=== PATIENT | male | born 1970 | race Caucasian/White ===

== ENCOUNTER 2018-02-24 12:17 | Inpatient (IN) | payer OTHER ==
[2018-02-24 13:02] LABS: BASOPHILS # (AUTO) 0.1 10^3/uL (0.0-0.1); BASOPHILS % (AUTO) 0.3 %; EOSINOPHILS # (AUTO) 0.1 10^3/uL (0.0-0.7); EOSINOPHILS % (AUTO) 0.3 %; HGB - HEMOGLOBIN 15.2 g/dL (14.0-18.0); LYMPHOCYTES # (AUTO) 2.4 10^3/uL (1.5-3.5); LYMPHOCYTES % (AUTO) 10.4 %; MEAN CORPUSCULAR HEMOGLOBIN 32.2 pg (27.0-31.0); MEAN CORPUSCULAR HGB CONC 33.9 g/dL (32.0-36.0); MEAN PLATELET VOLUME 8.6 fL (7.4-11.4); MONOCYTES # (AUTO) 2.6 10^3/uL (0.0-1.0); NEUTROPHILS # (AUTO) 18.2 10^3/uL (1.5-6.6); PLT - PLATELET COUNT 270 10^3/uL (130-450); RED BLOOD COUNT 4.71 10^6/uL (4.70-6.10); RED CELL DISTRIBUTION WIDTH 12.7 % (12.0-15.0); WHITE BLOOD COUNT 23.4 x10^3/uL (4.8-10.8)
[2018-02-24 13:16] LABS: ALBUMIN 4.5 g/dL (3.2-5.5); ALBUMIN/GLOBULIN RATIO 1.1 (1.0-2.2); BILIRUBIN,TOTAL 2.5 mg/dL (0.2-1.0); CALCIUM 9.4 mg/dL (8.5-10.3); CREATININE 1.1 mg/dL (0.6-1.2); TOTAL PROTEIN 8.5 g/dL (6.7-8.2)
[2018-02-24 13:18] LABS: GLUCOSE, URINE (UA) NEGATIVE (NEGATIVE); KETONES,URINE (UA) TRACE mg/dL (NEGATIVE); LEUKOCYTE ESTERASE, URINE NEGATIVE (NEGATIVE); NITRITE,URINE NEGATIVE (NEGATIVE); OCCULT BLOOD,URINE NEGATIVE (NEGATIVE); PROTEIN,URINE 30 mg/dL (NEGATIVE); UROBILINOGEN,URINE 2 E.U./dL (NORMAL)
[2018-02-24] MEDS ORDERED: MORPHINE 10 MG/ML VIAL IVP STA (13:19)
[2018-02-24] MEDS ORDERED: KETOROLAC 60 MG/2 ML VIAL IVP STA (13:19)
[2018-02-24] MEDS ORDERED: ONDANSETRON 4 MG/2 ML VIAL IVP STA (13:19)
[2018-02-24 13:36] LABS: BILIRUBIN,URINE NEGATIVE (NEGATIVE); CLARITY,URINE CLEAR (CLEAR); ICTOTEST,URINE NEGATIVE
[2018-02-24 13:37] LABS: BACTERIA,URINE None Seen /HPF (None Seen); CASTS, URINE 3-5 Hyaline Casts /LPF; MUCUS,URINE Marked Strands; RBC,URINE 0-5 /HPF (0-5); SQUAMOUS EPITHELIAL CELL,UR RARE Squamous (<= Few)
[2018-02-24 14:26] LABS: PLATELET ESTIMATE, MANUAL NORMAL (130-450,000) (NORMAL); PLATELET MORPHOLOGY NORMAL APPEARANCE (NORMAL); RBC MORPHOLOGY (MULTIPLE) NORMAL APPEARANCE (NORMAL)
[2018-02-24] MEDS ORDERED: IOPAMIDOL-300 100 ML VIAL ONE (14:43)
[2018-02-24] MEDS ORDERED: IOPAMIDOL-300 100 ML VIAL IVP ONE (14:44)
--- NOTE | 2018-02-24 15:10 | ED Physician Documentation ---
History of Present Illness - Stated complaint Stated Complaint: ABD PX, CHILLS, FEVER - Chief complaint Chief Complaint: Abd Pain - History obtained from History obtained from: Patient, Family - Additonal information Additional information: 47-year-old male presents to the emergency department with increasing lower abdominal pain over the past several days. The patient's pain has been focal and continuous and escalating in intensity. Now the patient's pain radiates into his left flank. The patient has had hematuria and nausea associated with this. Also fever and chills. No relieving factors. Symptoms are described as moderate. No other associated symptoms.While having his blood drawn the patient had a significant episode of pain and became woozy and lightheaded and had a vasovagal response. Now the patient has no complaints of dizziness, chest pain or palpitations Review of Systems Constitutional: reports: Fever, Chills Eyes: denies: Discharge Ears: denies: Ear pain Nose: denies: Congestion Throat: denies: Sore throat Cardiac: denies: Chest pain / pressure Respiratory: denies: Dyspnea GI: reports: Abdominal Pain, Nausea : reports: Hematuria. denies: Dysuria Skin: denies: Rash Musculoskeletal: denies: Neck pain Neurologic: denies: Generalized weakness Immunocompromised: denies: Chemotherapy PD PAST MEDICAL HISTORY - Past Medical History Past Medical History: Yes : Kidney stones - Past Surgical History Past Surgical History: No - Present Medications Home Medications: Ambulatory Orders Medication Instructions Recorded Confirmed Omeprazole 10 mg PO QDAC 02/24/18 02/24/18 Rosuvastatin Calcium [Crestor] 10 mg PO QPM 02/24/18 02/24/18 - Allergies Allergies/Adverse Reactions: Allergies Allergy/AdvReac Type Severity Reaction Status Date / Time No Known Drug Allergies Allergy Verified 02/24/18 12:25 - Social History Does the pt smoke?: No Smoking Status: Never smoker PD ED PE NORMAL - General General: Alert and oriented X 3, No acute distress, Well developed/nourished - HEENT HEENT: Atraumatic, PERRL, EOMI, Ears normal - Cardiac Cardiac: RRR, Strong equal pulses - Respiratory Respiratory: No respiratory distress, Clear bilaterally - Abdomen Abdomen: Normal bowel sounds, Soft, Non distended. No: Non tender (The patient has tenderness in his lower abdomen, no rebound or peritoneal signs) - Derm Derm: Normal color, No rash - Extremities Extremities: No deformity, Normal ROM s pain - Neuro Neuro: Alert and oriented X 3, No motor deficit - Psych Psych: Normal mood Results - Vitals Vitals: Vital Signs - 24 hr 02/24/18 02/24/18 02/24/18 12:23 14:36 16:18 Temperature 36.2 C L Heart Rate 97 94 84 Respiratory 15 20 20 Rate Blood Pressure 124/71 112/79 113/72 O2 Saturation 98 98 96 Oxygen O2 Source Room air - EKG (time done) 13: 27 Rate: Rate (enter#) Rhythm: NSR Intervals: Normal GA, QRS normal Ischemia: Non specific changes Other comments: Other comments - Labs Labs: Laboratory Tests 02/24/18 02/24/18 02/24/18 12:40 12:53 12:53 WBC 23.4 H RBC 4.71 Hgb 15.2 Hct 44.8 MCV 95.0 H MCH 32.2 H MCHC 33.9 RDW 12.7 Plt Count 270 MPV 8.6 Neut # (Auto) 18.2 H Lymph # (Auto) 2.4 Hunt # (Auto) 2.6 H Eos # (Auto) 0.1 Baso # (Auto) 0.1 Absolute Nucleated RBC 0.00 Nucleated RBC % 0.0 Manual Slide Review Indicated WBC Morphology NORMAL APPEARANCE Platelet Estimate NORMAL (130-450,000) Platelet Morphology NORMAL APPEARANCE RBC Morph Micro Appear NORMAL APPEARANCE Sodium 135 Potassium 4.0 Chloride 100 L Carbon Dioxide 24 Anion Gap 11.0 BUN 9 Creatinine 1.1 Estimated GFR (MDRD) 71 L Glucose 110 H Calcium 9.4 Total Bilirubin 2.5 H AST 22 ALT 20 Alkaline Phosphatase 58 Total Protein 8.5 H Albumin 4.5 Globulin 4.0 Albumin/Globulin Ratio 1.1 Lipase 31 Urine Color ORANGE Urine Clarity CLEAR Urine pH 6.0 Ur Specific [place] 1.025 Urine Protein 30 H Urine Glucose (UA) NEGATIVE Urine Ketones TRACE Urine Occult Blood NEGATIVE Urine Nitrite NEGATIVE Urine Bilirubin NEGATIVE Urine Urobilinogen 2 H Ur Leukocyte Esterase NEGATIVE Urine RBC 0-5 Urine WBC 0-3 Ur Squamous Epith Cells RARE Squamous Urine Bacteria None Seen Urine Casts 3-5 Hyaline Casts Urine Mucus Marked Strands Ur Microscopic Review INDICATED Urine Culture Comments NOT INDICATED - Rads (name of study) CT abdomen pelvis Radiology: Final report received, See rad report (Impression: 1. Moderate acute complicated diverticulitis involving the proximal sigmoid colon. There is trace extraluminal gas in this region suggesting a contained perforation with adjacent peritonitis. No drainable fluid collection at this time 2. Mild splenomegaly of uncertain etiology and clinical significance) PD MEDICAL DECISION MAKING - ED course ED course: The case was discussed with the on-call general surgeon Dr. Garcia who agrees to consult on the patient. The findings and plan were discussed with the patient who understands and agrees to the plan. The case was discussed with the hospitalist Dr. Noyola Who accepts the patient onto her service - Sepsis Event Vital Signs: Vital Signs - 24 hr 02/24/18 02/24/18 02/24/18 12:23 14:36 16:18 Temperature 36.2 C L Heart Rate 97 94 84 Respiratory 15 20 20 Rate Blood Pressure 124/71 112/79 113/72 O2 Saturation 98 98 96 Oxygen O2 Source Room air Departure - Departure Disposition: ED Place in Observation Clinical Impression: Perforation of cecum due to diverticulitis Condition: Good
[2018-02-24] MEDS ORDERED: PIPERACILLIN/TAZOBACTAM 4.5 GM in SODIUM CHLORIDE 0.9% MINIBAG 100 ML IV STA (15:53)
--- NOTE | 2018-02-24 15:54 | CT Report ---
Procedure Date: 02/24/2018 Accession Number: [id number] / [id number] Procedure: CT - Abdomen/Pelvis W/ CPT Code: FULL RESULT: EXAM: CT ABDOMEN AND PELVIS EXAM DATE: 02/24/2018 02:53 PM. CLINICAL HISTORY: Lower abdominal pain. COMPARISONS: None. TECHNIQUE: Routine helical CT imaging was performed through the abdomen and pelvis. IV contrast: 100 mL Isovue 300. Enteric contrast: No. Reconstructions: Coronal and sagittal. In accordance with CT protocol optimization, one or more of the following dose reduction techniques were utilized for this exam: automated exposure control, adjustment of mA and/or KV based on patient size, or use of iterative reconstructive technique. FINDINGS: Lung Bases: Unremarkable. Liver: Normal. No masses. Gallbladder/Bile Ducts: Unremarkable. Spleen: Mildly enlarged measuring 14.2 cm in oblique AP dimension (18). No suspicious focal lesion. Pancreas: Normal. Adrenal Glands: Normal. Kidneys: Normal. No masses or hydronephrosis. Peritoneal Cavity/Bowel: Few scattered colonic diverticula. There is moderate inflammation surrounding a proximal sigmoid diverticula in the left lower quadrant (3/63). There is a trace amount of extraluminal gas in this region in keeping with contained perforation. No rim-enhancing drainable fluid collection (/62-67). There is moderate adjacent fat stranding as well as thickening of the adjacent left lower quadrant peritoneum (3/65). Bowel is otherwise unremarkable. Appendix is well-visualized and normal. No abnormally enlarged lymph nodes. Pelvic Organs: Normal. The bladder and visualized pelvic organs are within normal limits. Vasculature: No abdominal aortic aneurysm. There is minimal distal abdominal aortic and common iliac artery calcific atherosclerosis. Bones: No acute osseous abnormality or suspicious focal osseous lesion. Moderate disk height loss and surrounding degenerative endplate changes at L4-L5. Other: Tiny fat-containing periumbilical hernia. No bowel containing abdominal wall hernia. IMPRESSION: 1. Moderate acute complicated diverticulitis involving the proximal sigmoid colon. There is trace extraluminal gas in this region suggesting a contained perforation with adjacent peritonitis. No drainable fluid collection at this time. 2. Mild splenomegaly of uncertain etiology and clinical significance. RADIA The above findings were discussed with Nirav Nicholas by Dr. Benigno Pak at 15:52 hrs on 02/24/18.
[2018-02-24] MEDS ORDERED: HYDROmorphone 1 MG/ML CARPUJECT IVP STA (16:17)
[2018-02-24] MEDS ORDERED: TEMAZEPAM 15 MG CAPSULE PO PRN (18:09)
[2018-02-24] MEDS ORDERED: ONDANSETRON ODT 4 MG TABLET TL PRN (18:09)
[2018-02-24] MEDS ORDERED: D5NS W/20 MEQ KCL 1,000 ML IV STA (18:19)
[2018-02-24] MEDS: metroNIDAZOLE 500 MG/100 ML 500 MG/100 ML BAG IV SCH (19:40)
[2018-02-24] MEDS: PANTOPRAZOLE 40 MG VIAL IVP SCH (19:41)
[2018-02-24] MEDS: SODIUM CHLORIDE FLUSH 0.9% 10 ML SYRINGE IVP PRN (19:41)
[2018-02-24] MEDS: HYDROmorphone 0.5 MG/0.5 ML SYRINGE IVP PRN ×2 (19:50→23:29)
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
[2018-02-24] MEDS ORDERED: PIPERACILLIN/TAZOBACTAM 3.375 GM in SODIUM CHLORIDE 0.9% MINIBAG 100 ML IV SCH (22:26)
[2018-02-25] MEDS: HYDROmorphone 0.5 MG/0.5 ML SYRINGE IVP PRN ×7 (01:39→18:58)
[2018-02-25] MEDS: SODIUM CHLORIDE FLUSH 0.9% 10 ML SYRINGE IVP SCH ×3 (01:43→17:01)
[2018-02-25] MEDS: metroNIDAZOLE 500 MG/100 ML 500 MG/100 ML BAG IV SCH ×3 (03:35→19:49)
[2018-02-25 05:38] LABS: BASOPHILS % (AUTO) 0.3 %; EOSINOPHILS # (AUTO) 0.1 10^3/uL (0.0-0.7); EOSINOPHILS % (AUTO) 0.9 %; LYMPHOCYTES # (AUTO) 1.9 10^3/uL (1.5-3.5); MEAN CORPUSCULAR HGB CONC 34.8 g/dL (32.0-36.0); MEAN CORPUSCULAR VOLUME 94.9 fL (80.0-94.0); MEAN PLATELET VOLUME 8.4 fL (7.4-11.4); MONOCYTES # (AUTO) 1.3 10^3/uL (0.0-1.0); MONOCYTES % (AUTO) 9.5 %; NEUTROPHILS # (AUTO) 10.3 10^3/uL (1.5-6.6); NEUTROPHILS % (AUTO) 75.3 %; PLT - PLATELET COUNT 217 10^3/uL (130-450); RED BLOOD COUNT 3.94 10^6/uL (4.70-6.10); RED CELL DISTRIBUTION WIDTH 12.7 % (12.0-15.0); WHITE BLOOD COUNT 13.7 x10^3/uL (4.8-10.8)
[2018-02-25 05:53] LABS: ALBUMIN 3.4 g/dL (3.2-5.5); ALBUMIN/GLOBULIN RATIO 1.1 (1.0-2.2); CALCIUM 8.5 mg/dL (8.5-10.3); CREATININE 0.8 mg/dL (0.6-1.2); TOTAL PROTEIN 6.4 g/dL (6.7-8.2)
[2018-02-25] MEDS: SODIUM CHLORIDE FLUSH 0.9% 10 ML SYRINGE IVP PRN ×2 (05:55→06:05)
[2018-02-25] MEDS: PANTOPRAZOLE 40 MG VIAL IVP SCH ×2 (06:05→17:01)
[2018-02-25] MEDS: PIPERACILLIN/TAZOBACTAM 3.375 GM in SODIUM CHLORIDE 0.9% MINIBAG 100 ML IV SCH ×3 (06:05→18:37)
--- NOTE | 2018-02-25 10:09 | CONSULTATION NOTE ---
Referring Provider Consult Date: 02/25/18 Chief Complaint - Chief Complaint Chief Complaint: complicated diverticulitis History of Present Illness - History of Present Illness HPI Comment/Other: This is a 39-year-old gentleman who presented to the emergency department yesterday for left lower quadrant abdominal pain and fevers. He states that on Tuesday he began feeling left-sided abdominal and flank pain and thought he was passing a kidney stone as he has had past multiple stones in the past and this felt similar. The pain failed to improve and he eventually went to the emergency department where a CT scan was performed and confirmed findings of acute diverticulitis with localized perforation and without evidence of abscess formation. Additionally his white blood cell count was noted to be 23,000. His physical exam was negative for peritonitis and was admitted to the medical service. Upon my evaluation of the patient today his pain is markedly improved.His white blood cell count has decreased to 13,000 And he has been afebrile. He denies any prior episodes of diverticulitis. He has never had a colonoscopy. History - Past Medical History Cardiovascular: reports: High cholesterol Respiratory: reports: None Neuro: reports: Migraines Endocrine/Autoimmune: reports: None GI: reports: None : reports: Kidney stones HEENT: reports: None Psych: reports: None Musculoskeletal: reports: None Derm: reports: None MRSA Hx?: No - Past Surgical History HEENT: reports: Other Meds/Allgy - Home Medications Home Medications: Ambulatory Orders Medication Instructions Recorded Confirmed Omeprazole 10 mg PO QDAC 02/24/18 02/24/18 Rosuvastatin Calcium [Crestor] 10 mg PO QPM 02/24/18 02/24/18 - Allergies Allergies/Adverse Reactions: Allergies Allergy/AdvReac Type Severity Reaction Status Date / Time No Known Drug Allergies Allergy Verified 02/24/18 12:25 Review of Systems - Constitutional Constitutional: reports: Fatigue - Cardiovascular Cariovascular: denies: Irregular heart rate - Gastrointestinal Gastrointestinal: reports: Abdominal pain, Diarrhea - Neurological Neurological: denies: General weakness - Psychiatric Psychiatric: denies: Depression Exam - Vital Signs Vital Signs: Vital Signs x48h Temp Pulse Resp BP Pulse Ox 02/25/18 08:16 37.5 C 88 17 110/54 L 94 - Physical Exam General Appearance: positive: No acute distress Respiratory: positive: No respiratory distress Cardiovascular: positive: Regular rate & rhythm Abdomen: positive: No distention, Other (mild tenderness to palpation in the left lower quadrant without gaurding or rebound) Extremities: positive: No pedal edema Neurologic/Psychiatric: positive: Oriented x3 Conclusion/Plan - Diagnosis Diagnosis: Acute diverticulitis with localized perforation - Plan Plan: The patient is already responding favorable to IV antibiotics. I recommend continuing IV antibiotics until normalization of WBC and resolution of abdominal pain. OK to start clear liquids today. Upon discharge he will need a colonoscopy scheduled in the elective setting. The patient was counselled that most patients respond to medical management, however, if he fails to improve, surgical intervention may be necessary. I also indicated that diverticulitis can recur in the future and multiple recurrences may also warrant surgical intervention. - Lab Results Fish Bones: 02/25/18 05:17 02/25/18 05:17
[2018-02-25] MEDS ORDERED: SODIUM CHLORIDE 0.9% 1,000 ML IV ONE (11:32)
[2018-02-25] MEDS: POLYETHYLENE GLYCOL 3350 17 GM PACKET PO SCH (11:53)
--- NOTE | 2018-02-25 13:28 | PROVIDER PROGRESS NOTE ---
Assessment/Plan - Problem List (1) Perforated bowel Assessment/Plan: Pt stable clinically. Was seen by Generl surgeon, her consult is appreciated. Continue iv antibiotics. Continue iv fluids. Advance diet slowly, to clear liquids today. Follow CBC and CMP daily. (2) Acute diverticulitis Assessment/Plan: As in #1. - Current Meds Current Meds: Current Medications Generic Name Dose Route Start Last Admin Trade Name Freq PRN Reason Stop Dose Admin Hydromorphone HCl 0.5 mg 02/24/18 18:09 02/25/18 09:52 Dilaudid Inj Syringe IVP 0.5 mg Q2H PRN Administration Pain 8 to 10 Metronidazole 500 mg in 100 mls @ 100 mls/hr 02/24/18 19:00 02/25/18 12:23 Flagyl 500 Mg/100 Ml IV Infused Q8H JOHNNY Infusion Piperacillin Sod/Tazobactam 100 mls @ 200 mls/hr 02/25/18 06:00 02/25/18 12: 25 Sod 3.375 gm/ Sodium Chloride IV Infused Q6H JOHNNY Infusion Pantoprazole Sodium 40 mg 02/24/18 19:00 02/25/18 06:05 Protonix IVP 40 mg BIDAC JOHNNY Administration Polyethylene Glycol 17 gm 02/25/18 09:00 02/25/18 11:53 Miralax PO 17 gm DAILY JOHNNY Administration Sodium Chloride 10 ml 02/24/18 18:09 02/25/18 06:05 Normal Saline Flush 0.9% IVP 10 ml PRN PRN Administration NEEDED PER PROVIDER ORDERS Sodium Chloride 10 ml 02/25/18 01:00 02/25/18 11:33 Normal Saline Flush 0.9% IVP Not Given 0100,0900,1700 JOHNNY - Lab Result Fish Bone Diagrams: 02/25/18 05:17 02/25/18 05:17 - Additional Planning My Orders: My Active Orders 02/24/18 19:00 metroNIDAZOLE 500 MG/100 ML [Flagyl 500 mg/100 ml] 500 mg in 100 ml IV Q8H 02/25/18 06:00 Piperacillin/Tazobactam [Zosyn] 3.375 gm Sodium Chloride 0.9% Minibag [Normal Saline 0.9% Minibag] 100 ml IV Q6H 02/25/18 13:00 Electrolyte-A Solution [Plasma-Lyte A pH 7.4] 1,000 ml IV 150 mls/hr 02/25/18 Lunch DIET [Clear Liquid Diet] [DIET] Subjective - Subjective Patient Reports: Feeling Better Nursing Reports: Other (Tolerated liquids po) Objective Vital Signs: Vital Signs - 24 hr 02/24/18 02/25/18 02/25/18 18:39 00:00 08:16 Temperature 36.6 C 37.2 C 37.5 C Heart Rate [ 75 Apical] Heart Rate [ 90 88 Brachial] Respiratory 16 18 17 Rate Blood Pressure 123/72 112/63 110/54 L [Left Brachial artery] O2 Saturation 95 94 94 Oxygen O2 Source Room air I&O (Last 24 Hrs): Intake and Output Totals x24h 02/23/18 02/24/18 02/25/18 23:59 23:59 23:59 Intake Total 339.229 9202.668 Output Total 200 Balance 522.418 4097.668 General: Alert, Oriented x3, Cooperative HEENT: Mucous membr. moist/pink Neck: Supple Neuro: Non Focal Cardiovascular: Regular rate, No murmurs Respiratory: No respiratory distress, Breath sounds nml Abdomen: Other (Decreased bowel sounds, less tender in lower mid abd and LLQ than yesterday) Extremities: No edema - Results Results: Laboratory Results WBC 13.7 x10^3/uL (4.8-10.8) H 02/25/18 05:17 RBC 3.94 10^6/uL (4.70-6.10) L 02/25/18 05:17 Hgb 13.0 g/dL (14.0-18.0) L 02/25/18 05:17 Hct 37.4 % (42.0-52.0) L 02/25/18 05:17 MCV 94.9 fL (80.0-94.0) H 02/25/18 05:17 MCH 33.0 pg (27.0-31.0) H 02/25/18 05:17 MCHC 34.8 g/dL (32.0-36.0) 02/25/18 05:17 RDW 12.7 % (12.0-15.0) 02/25/18 05:17 Plt Count 217 10^3/uL (130-450) 02/25/18 05:17 MPV 8.4 fL (7.4-11.4) 02/25/18 05:17 Neut # (Auto) 10.3 10^3/uL (1.5-6.6) H 02/25/18 05:17 Lymph # (Auto) 1.9 10^3/uL (1.5-3.5) 02/25/18 05:17 [place] # (Auto) 1.3 10^3/uL (0.0-1.0) H 02/25/18 05:17 Eos # (Auto) 0.1 10^3/uL (0.0-0.7) 02/25/18 05:17 Baso # (Auto) 0.0 10^3/uL (0.0-0.1) 02/25/18 05:17 Absolute Nucleated RBC 0.00 x10^3/uL 02/25/18 05:17 Nucleated RBC % 0.0 /100WBC 02/25/18 05:17 Manual Slide Review Indicated 02/24/18 12:53 WBC Morphology NORMAL APPEARANCE (NORMAL) 02/24/18 12:53 Platelet Estimate NORMAL (130-450,000) (NORMAL) 02/24/18 12:53 Platelet Morphology NORMAL APPEARANCE (NORMAL) 02/24/18 12:53 RBC Morph Micro Appear NORMAL APPEARANCE (NORMAL) 02/24/18 12:53 Sodium 135 mmol/L (135-145) 02/25/18 05:17 Potassium 3.9 mmol/L (3.5-5.0) 02/25/18 05:17 Chloride 105 mmol/L (101-111) 02/25/18 05:17 Carbon Dioxide 25 mmol/L (21-32) 02/25/18 05:17 Anion Gap 5.0 (6-13) L 02/25/18 05:17 BUN 7 mg/dL (6-20) 02/25/18 05:17 Creatinine 0.8 mg/dL (0.6-1.2) 02/25/18 05:17 Estimated GFR (MDRD) 103 (>89) 02/25/18 05:17 Glucose 118 mg/dL (70-100) H 02/25/18 05:17 Lactic Acid 0.8 mmol/L (0.5-2.2) 02/24/18 18:25 Calcium 8.5 mg/dL (8.5-10.3) 02/25/18 05:17 Magnesium 2.2 mg/dL (1.7-2.8) 02/24/18 18:25 Total Bilirubin 1.0 mg/dL (0.2-1.0) 02/25/18 05:17 AST 14 IU/L (10-42) 02/25/18 05:17 ALT 14 IU/L (10-60) 02/25/18 05:17 Alkaline Phosphatase 42 IU/L (42-121) 02/25/18 05:17 Total Protein 6.4 g/dL (6.7-8.2) L 02/25/18 05:17 Albumin 3.4 g/dL (3.2-5.5) 02/25/18 05:17 Globulin 3.0 g/dL (2.1-4.2) 02/25/18 05:17 Albumin/Globulin Ratio 1.1 (1.0-2.2) 02/25/18 05:17 Lipase 31 U/L (22-51) 02/24/18 12:53 Urine Color ORANGE 02/24/18 12:40 Urine Clarity CLEAR (CLEAR) 02/24/18 12:40 Urine pH 6.0 PH (5.0-7.5) 02/24/18 12:40 Ur Specific [place] 1.025 (1.002-1.030) 02/24/18 12:40 Urine Protein 30 mg/dL (NEGATIVE) H 02/24/18 12:40 Urine Glucose (UA) NEGATIVE mg/dL (NEGATIVE) 02/24/18 12:40 Urine Ketones TRACE mg/dL (NEGATIVE) 02/24/18 12:40 Urine Occult Blood NEGATIVE (NEGATIVE) 02/24/18 12:40 Urine Nitrite NEGATIVE (NEGATIVE) 02/24/18 12:40 Urine Bilirubin NEGATIVE (NEGATIVE) 02/24/18 12:40 Urine Urobilinogen 2 E.U./dL (NORMAL) H 02/24/18 12:40 Ur Leukocyte Esterase NEGATIVE (NEGATIVE) 02/24/18 12:40 Urine RBC 0-5 /HPF (0-5) 02/24/18 12:40 Urine WBC 0-3 /HPF (0-3) 02/24/18 12:40 Ur Squamous Epith Cells RARE Squamous (<= Few) 02/24/18 12:40 Urine Bacteria None Seen /HPF (None Seen) 02/24/18 12:40 Urine Casts 3-5 Hyaline Casts /LPF 02/24/18 12:40 Urine Mucus Marked Strands 02/24/18 12:40 Ur Microscopic Review INDICATED 02/24/18 12:40 Urine Culture Comments NOT INDICATED 02/24/18 12:40 ABX Reporting Has patient been on IV antibiotics over the past 48 hours?: Yes
[2018-02-25] MEDS: ELECTROLYTE-A SOLUTION 1,000 ML IV SCH ×2 (13:30→21:45)
[2018-02-25] MEDS ORDERED: PIPERACILLIN/TAZOBACTAM 3.375 GM in SODIUM CHLORIDE 0.9% MINIBAG 100 ML IV SCH (22:00)
[2018-02-26] MEDS: PIPERACILLIN/TAZOBACTAM 3.375 GM in SODIUM CHLORIDE 0.9% MINIBAG 100 ML IV SCH ×4 (00:33→16:28)
[2018-02-26] MEDS: metroNIDAZOLE 500 MG/100 ML 500 MG/100 ML BAG IV SCH ×3 (03:06→17:14)
[2018-02-26] MEDS: ELECTROLYTE-A SOLUTION 1,000 ML IV SCH (06:00)
[2018-02-26] MEDS: PANTOPRAZOLE 40 MG VIAL IVP SCH ×2 (06:03→16:12)
[2018-02-26] MEDS: SODIUM CHLORIDE FLUSH 0.9% 10 ML SYRINGE IVP PRN (06:03)
[2018-02-26] MEDS: SODIUM CHLORIDE FLUSH 0.9% 10 ML SYRINGE IVP SCH ×3 (06:03→16:12)
[2018-02-26] MEDS ORDERED: D5NS W/20 MEQ KCL 1,000 ML IV SCH (08:00)
[2018-02-26] MEDS: POLYETHYLENE GLYCOL 3350 17 GM PACKET PO SCH (10:05)
[2018-02-26 12:30] LABS: BASOPHILS # (AUTO) 0.1 10^3/uL (0.0-0.1); BASOPHILS % (AUTO) 0.7 %; EOSINOPHILS # (AUTO) 0.1 10^3/uL (0.0-0.7); EOSINOPHILS % (AUTO) 1.4 %; HGB - HEMOGLOBIN 13.6 g/dL (14.0-18.0); LYMPHOCYTES # (AUTO) 2.1 10^3/uL (1.5-3.5); MEAN CORPUSCULAR HEMOGLOBIN 32.3 pg (27.0-31.0); MEAN CORPUSCULAR HGB CONC 33.8 g/dL (32.0-36.0); MEAN CORPUSCULAR VOLUME 95.5 fL (80.0-94.0); MEAN PLATELET VOLUME 8.2 fL (7.4-11.4); MONOCYTES % (AUTO) 10.4 %; NEUTROPHILS # (AUTO) 6.2 10^3/uL (1.5-6.6); NEUTROPHILS % (AUTO) 65.5 %; PLT - PLATELET COUNT 305 10^3/uL (130-450); RED CELL DISTRIBUTION WIDTH 12.6 % (12.0-15.0); WHITE BLOOD COUNT 9.5 x10^3/uL (4.8-10.8)
--- NOTE | 2018-02-26 12:38 | PROVIDER PROGRESS NOTE ---
Subjective - Prog Note Date Prog Note Date: 02/26/18 - Subjective Pt reports feeling: Improved Subjective: Patient states that his pain is completely subsided. He had a loose BM yesterday. He is tolerating clears. He has been afebrile since admission. Objective - Vital Signs/Intake & Output Reviewed Vital Signs: Yes Vital Signs: Vital Signs x48h Temp Pulse Resp BP Pulse Ox 02/26/18 09:50 36.8 C 79 18 124/77 94 Intake & Output: Intake & Output 02/23/18 02/24/18 02/25/18 02/26/18 23:59 23:59 23:59 23:59 Intake Total 785.719 8430.168 1602.5 Output Total 200 Balance 278.437 8992.168 1602.5 - Objective General Appearance: positive: No acute distress Respiratory: positive: No respiratory distress Cardiovascular: positive: Regular rate & rhythm Abdomen: positive: Non-tender, No distention Extremities: positive: No pedal edema - Lab Results Fish Bones: 02/25/18 05:17 02/25/18 05:17 ABX Reporting Has patient been on IV antibiotics over the past 48 hours?: Yes Assessment/Plan - Problem List (1) Acute diverticulitis Impression: Advance to low residue diet. Repeat CBC today. If WBC is normal patient can be discharged home on oral antibiotics to complete a 10 day course. He should follow up in the surgical clinic to schedule a colonoscopy in 6 weeks.
--- NOTE | 2018-02-26 17:17 | Discharge Plan ---
Discharge Plan Disposition: Home, Self Care Condition: Stable Prescriptions: Ciprofloxacin HCl [Cipro] 500 mg PO BID #20 tablet Metronidazole [Flagyl] 500 mg PO BID #20 tablet Diet: Soft Activity Restrictions: Activity as Tolerated Shower Restrictions: No Driving Restrictions: No Instruction Topics: Diverticulosis Diverticulitis Additional Instructions or Follow Up instructions: Stay on a bland diet (BRAT = Bread, Rice, Applesauce, Tea) and stay well hydrated. Take the 2 antibiotics untill all the pills are finished. See your PCP in follow-up im 7-10 days. Return to the ER if you feel worse, or if there is rectal bleeding. No Smoking: If you smoke, Please STOP! Call for help. Follow-up with: VALENTINO HANLEY [Primary Care Provider] -
[2018-02-26 18:31] VITALS: BP 133/77
--- NOTE | 2018-02-27 07:14 | DISCHARGE SUMMARY ---
Physician: Michelle Noyola MD DATE OF ADMISSION: 02/24/2018 DATE OF DISCHARGE: 02/26/2018 HISTORY OF PRESENT ILLNESS: This is a 47-year-old white male with a history of kidney stones, hyperlipidemia and heartburn. The patient presented to the hospital with 3 days of lower abdominal and upper testicular pain, which he thought was a repeat of his kidney stones. He developed fever and chills, aches and pains diffusely, and continued abdominal pain along with anorexia, which was unlike his kidney stone presentation, and therefore he came to the emergency room. CT imaging found that he had a left-sided diverticulitis with a contained perforation, and he was admitted for this. HOSPITAL COURSE AND DISCHARGE DIAGNOSES 1. Bowel perforation. The patient's pain was controlled with IV and oral pain medications. His bowel was put at rest, eventually increased to clear liquids and then a full diet when he had decreased pain. His bowel movements were never abnormal. He was seen in consultation for his gastrointestinal system by General Surgery, who followed along with us, and was pleased with his recovery with medical management. The patient was placed on antibiotics and sent home to complete a total 12-day course of antibiotics. 2. Acute diverticulitis. The patient has never had this type of attack before. He described fever and chills, had no fever since being admitted here, however. He was placed on IV Flagyl and iv Zosyn. Since his symptoms decreased and he was able to tolerate an advancing diet, he was discharged in fair condition on 02/26/2018 to complete a course of Cipro 500 mg p.o. b.i.d. and Flagyl 500 mg p.o. b.i.d. for 10 more days. He was advised to see his PCP and have a colonoscopy in the near future. ALLERGIES: NONE. MEDICATIONS AT THE TIME OF DISCHARGE: 1. Resumption of Crestor eventually. 2. Resumption of omeprazole p.r.n. eventually. 3. Flagyl 500 mg p.o. b.i.d. for 10 days. 4. Cipro 500 mg p.o. b.i.d. for 10 days. PHYSICAL EXAMINATION AT DISCHARGE VITAL SIGNS: Blood pressure 133/77, pulse of 60-80 in sinus rhythm, afebrile, room air saturation 96%. HEENT: Unremarkable, with moist oral mucosa, improved since admission when he had dry oral mucosa. NECK: Without JVD or carotid bruits. CHEST: Clear. HEART: Heart sounds normal. ABDOMEN: Soft with normal bowel sounds. Tender to deep palpation in the left lower quadrant and lower midabdomen and the top of his testicles with no guarding or rebound. No organomegaly. EXTREMITIES: Legs without edema. NEUROLOGIC: Intact. FOLLOWUP: With his PCP in 7-10 days. Colonoscopy is advised. CODE STATUS: FULL CODE. Time required to complete this entire discharge, dictation, chart review: 30 minutes. cc: Imelda Landa TD: 02/26/2018 18:42 GAVIN
== END 2018-02-26 18:30 | disposition home or self-care (01) | DRG 392 ==
LOC: ED 12:17 → MS3 18:09
PROVIDERS: ADMIT Internal Medicine; ATTEND Internal Medicine
DX: K57.20 Diverticulitis of large intestine with perforation and abscess without bleeding (principal); E78.5 Hyperlipidemia, unspecified; R12 Heartburn; E66.9 Obesity, unspecified; Z87.442 Personal history of urinary calculi; Z68.31 Body mass index [BMI] 31.0-31.9, adult; Z79.899 Other long term (current) drug therapy; Z83.79 Family history of other diseases of the digestive system
CPT/HCPCS: 36415; 74177; 80053; 81001; 81003; 83605; 83690; 83735; 85025; 87086; 93005; 96365; 96375; 99284; 99285